=== PATIENT | female | born 1995 | race Caucasian/White ===

== ENCOUNTER 2018-02-27 17:21 | Emergency (ER) | payer SELFPAY ==
[~2018-02-27 17:21] MED LIST: LOR5/325 PO; NO ROUTINE MEDS
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
== END 2018-02-27 19:05 | disposition home or self-care (01) ==
LOC: ER 17:59
DX: F41.9 Anxiety disorder, unspecified (principal)
CPT/HCPCS: 80305; 81001; 99283

== ENCOUNTER → 2018-03-03 | Outpatient (CLI) | payer OTHER ==
[2018-03-03 12:20] LABS: PLATELET COUNT, AUTOMATED 251 K/uL (150-450)
--- NOTE | 2018-03-03 12:32 | EKG ---
FACILITY: [facility] [place] PATIENT NAME: MIRANDA JENNINGS : [id number] MR: [id number] V: [id number] EXAM DATE: ORDERING PHYSICIAN: ALBERT BLAS TECHNOLOGIST: GERMAINE Dahl Reason : CHEST PAIN Blood Pressure : / mmHG Vent. Rate : 048 BPM Atrial Rate : 048 BPM P-R Int : 148 ms QRS Dur : 074 ms QT Int : 442 ms P-R-T Axes : 042 050 037 degrees QTc Int : 394 ms Marked sinus bradycardia with sinus arrhythmia No ST-T abnormalities No previous ECGs available Confirmed by VALENTIN LAURA ([id number]) on 03/04/2018 12:58:03 PM Referred By: ROOPA Confirmed By:VALENTIN LAURA
--- NOTE | 2018-03-03 13:03 | RADIOLOGY IMAGING REPORT ---
[place] [facility] [place] NAME: Verenice Donaldson : 1995 MR: [id number] V: [id number] EXAM DATE: ORDERING PHYSICIAN: ALBERT BLAS TECHNOLOGIST: Location: [facility] [place] Patient: Verenice Donaldson : 1995 Visit/Account:[id number] Date of Sevice: 03/03/2018 Exam type: CHEST PA AND LAT History: Chest pain started yesterday Comparison: None. Findings: The lungs are free of acute effusions, infiltrates or edema. There is no evidence of pneumothorax or pneumomediastinum. Cardiac silhouette is normal in size. The trachea is midline. IMPRESSION: 1. No acute cardiac pulmonary process is seen Report Dictated By: Lulú Bradley MD at 03/03/2018 12:57 PM Report E-Signed By: Lulú Bradley MD at 03/03/2018 12:58 PM WSN:[email or web address]
== END ==
LOC: RAD 12:02
PROVIDERS: ATTEND Physician Assistant
DX: R00.1 Bradycardia, unspecified (principal); I49.8 Other specified cardiac arrhythmias
CPT/HCPCS: 36415; 71046; 82310; 82374; 82435; 82565; 82947; 83690; 84132; 84295; 84520; 85025; 93005

== ENCOUNTER 2018-03-07 13:00 | Emergency (ER) | payer OTHER ==
--- NOTE | 2018-03-07 14:09 | ER Report ---
History and Physical Time Seen By MD: 13:10 Hx. of Stated Complaint: PT REPORTS PAIN IN THE RIGHT SIDE OF HER HEAD THAT STARTED LAST NIGHT HPI/ROS This is a 23-year-old otherwise healthy female who is from [place] originally , but currently living in [place]. She presents to the emergency department complaining of a right sided posterior headache that started yesterday. The headache improved with some ibuprofen yesterday, however she states that her grandfather had a cerebral aneurysm and she is worried that she has same. Her headache is point tenderness, not the worse headache of her life, not maximal at onset. She has no fever chills, and no meningismus. She also adds that she is currently learning a new foreign language and feels as if her headache may be because "there are new pathways opening up in my brain." She has no other complaints. Remainder of the 14 system rev: Yes Allergies: Coded Allergies: No Known Drug Allergies (Unverified , 03/07/18) Home Meds Unable to Obtain Active Prescriptions or Reported Meds Reviewed Nurses Notes: Yes Old Medical Records Reviewed: Yes Hx Smoking: No Hx Substance Use Disorder: No Hx Alcohol Use: Yes (OCC) Constitutional Vital Sign - Last 24 Hours 03/07/18 13:05 Temp 98.2 Pulse 59 Resp 16 B/P (MAP) 113/78 Pulse Ox 95 O2 Delivery Room Air Physical Exam General Appearance: The patient is alert, has no immediate need for airway protection and no current signs of toxicity. Eyes: Pupils equal and round no injection. Respiratory: Chest is non tender, lungs are clear to auscultation. Cardiac: regular rate and rhythm Gastrointestinal: Abdomen is soft and non tender, no masses, bowel sounds normal. Neck: Neck is supple. No meningismus. There is TTP along the right upper trapezius muscle and point TTP where the trapezius inserts into the cranium Extremities have full range of motion and are non tender. Skin: No rashes or lesions. DIFFERENTIAL DIAGNOSIS: After history and physical exam differential diagnosis was considered for headache including but not limited to subarachnoid hemorrhage , migraine headache, tension headache and infectious causes such as meningitis, pharyngitis and sinusitis. Medical Decision Making ED Course/Re-evaluation ED Course This is an otherwise healthy 23-year-old female who presents to the emergency department with pain in the right posterior portion of her head that started yesterday. She has no fever or chills, no meningismus. He is not worst headache of her life, and not maximal at onset. She has point tenderness to palpation at the insertion of the trapezius into the cranium. I think this is consistent with occipital neuralgia. She does not want any medications. I counseled her to take ibuprofen or Tylenol for the pain and follow-up with a primary care physician. Decision to Disposition Date: March 07, 2018 Decision to Disposition Time: 14:05 Depart Departure Latest Vital Signs Vital Signs Date Time Temp Pulse Resp B/P (MAP) Pulse Ox O2 Delivery O2 Flow Rate FiO2 03/07/18 13:05 98.2 59 16 113/78 95 Room Air Impression: Primary Impression: Occipital neuralgia of right side Condition: Improved Disposition: HOME OR SELF-CARE New Scripts Unable to Obtain Active Prescriptions or Reported Meds Patient Instructions: Acute Headache (ED) ASMITA LEONG MD March 07, 2018 14:09
[2018-03-07 14:12] VITALS: BP 105/65
== END 2018-03-07 14:14 | disposition home or self-care (01) ==
LOC: ER 13:19
DX: M54.81 Occipital neuralgia (principal)
CPT/HCPCS: 99282

== ENCOUNTER 2018-11-12 21:41 | Inpatient (IN) | payer MEDICAID ==
[~2018-11-12] VITALS: Ht 152.4 cm; Wt 43.1 kg
[~2018-11-12 21:41] MED LIST changes: +BUPR-133 PO
[2018-11-12 22:23] VITALS: BP 101/76
[2018-11-12] MEDS ORDERED: ACETAMINOPHEN 325 MG TAB PO PRN (22:45)
[2018-11-12] MEDS ORDERED: MAG HYD/AL HYD/SIMETH 30ML UDC PO PRN (22:45)
[2018-11-12] MEDS ORDERED: hydrOXYzine PAMOATE 25 MG CAP PO PRN (22:45)
[2018-11-12] MEDS ORDERED: NICOTINE POLACRILEX 4 MG LOZG PO PRN (23:15)
[2018-11-12] MEDS ORDERED: NICOTINE POLACRILEX 2 MG GUM PO PRN (23:15)
[2018-11-12] MEDS ORDERED: NICOTINE INH SYSTEM 10 MG/INH INH PRN (23:15)
[2018-11-13] MEDS ORDERED: NICOTINE 21 MG/24 HR PATCH TD SCH
[2018-11-13] MEDS ORDERED: LORazepam 1 MG TAB PO PRN (00:25)
--- NOTE | 2018-11-13 00:36 | NUR ---
Offered patient Ativan per orders. Patient appears anxious and restless, continues to be paranoid. Denies feeling like there is bugs in her bed at this time. Encouraged patient to verbalize feelings and concerns. Addendum: 11/13/18 at 0041 by YINKA REYES RN Patient with frequent questions regarding medications. Stated that the "last medication you gave me made my stomach hurt." Requested a snack at that time, and was provided one.
[2018-11-13 06:17] VITALS: BP 98/64
[2018-11-13] MEDS: MULTIVITAMINS TAB PO SCH (08:33)
[2018-11-13] MEDS ORDERED: PATCH REMOVAL 1 EA TP SCH (09:00)
[2018-11-13] MEDS ORDERED: SERTRALINE HCL 50 MG TAB PO SCH (10:00)
[2018-11-13 11:30] VITALS: BP 110/64
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
[2018-11-13] MEDS ORDERED: BUPR-472 PO (16:12)
[2018-11-13] MEDS ORDERED: BUPR-474 PO (16:12)
[2018-11-13 17:30] VITALS: BP 102/68
[2018-11-13] MEDS ORDERED: QUEtiapine FUM 25 MG TAB PO ONE (21:00)
[2018-11-13 21:51] VITALS: BP 138/113
[2018-11-14 06:13] VITALS: BP 120/79
[2018-11-14] MEDS: SERTRALINE HCL 50 MG TAB PO SCH (08:34)
[2018-11-14] MEDS: MULTIVITAMINS TAB PO SCH (08:34)
[2018-11-14 13:25] VITALS: BP 108/60
--- NOTE | 2018-11-14 13:41 | BHS Progress Note ---
[facility] - Subjective Progress Notes Subjective Feeling much better today. Encouraged by a visit with relatives yesterday. Slept well. Feels thinking is "more focused" and "rejuvenated." No longer feels there are bugs in her room. Denies A/V hallucinations and feels safe here but volunteered that she would probably not feel safe at home since Verenice still feels that someone is doing things to her house and coming into her house to harass her. Talked about plans. Verenice is worried about the fact that her daughter's father wants to move to [place]. She spoke with her mother who is in [place] yesterday and they discussed the possiblity of Verenice's returning there as well. She would now like her mother to be involved in her care. I suggested a conference call tomorrow to talk with Verenice's mother about what we need to do to help Verenice. Suicidal Ideation: None Homicidal Ideation: None [facility] - Objective Physical Exam Vital Signs Temp 97, BP 120/79, pulse 97,PO2 96 Gait and Station: Steady [facility] Medications Reviewed: Side Effects (Denies any side effects so far), Benefits of Medication Mental Status Exam General Appearance: Well Groomed, Good Eye Contact, Cooperative, Polite, Good Interaction Speech: Clear, Spontaneous, Normal Rate, Normal Rhythm, Normal Volume, Normal Tone Mood: Euthymic (Does not feel depressed this morning) Affect: Other (improved but still a little reticent) Thought Process: Organized, Logical, Goal Directed Thought Content: No Suicidal Ideation; Delusions (See earlier narrative); No Auditory Halllucinations, No Visual Hallucinations Sensorium: Clear Cognition: Alert & Oriented-Person, Alert & Oriented-Place, Alert & Oriented-Time, Tidko-Wpdduqbb-Gxlssjjax Memory: Immediate, Recent, Remote, Other Intelligence: Average [facility] Assessment and Plan Qhks-gr-Opld Encounter Date: Nov 14, 2018 Ejwj-kf-Jshr Encounter Time: 10:20 [facility] Plan: Individual/Group Therapy, Admin/Titrate Meds, Educate Patient Problems: (1) Depression Status: Acute Condition Verenice is improving and willing to continue the use of Zoloft and Seroquel. We increased the dose of both to 50 mgs today. Hope to arrange family conference call tomorrow. Problem Qualifiers (1) Depression: Depression Type: major depressive disorder Major depression recurrence: single episode Psychotic features: with psychotic features GIANNA CABRERA DO Nov 14, 2018 13:41
[2018-11-14] MEDS ORDERED: diphenhydrAMINE 25 MG CAP PO PRN (17:10)
--- NOTE | 2018-11-14 17:27 | NUR ---
At approximately 1640 pt came to desk with c/o her "jaw quivering", and stated that it started 30 minutes [address] Tan was contacted by this nurse. Dr. Tan did not feel that it was necessary for intervention, and to assure pt that the MD did not feel it was medication related. When discussing conversation with pt, pt states that she is having "muscle spasms" in her jaw. It was discussed that Benadryl may be ordered for symptoms, and the patient states, "I don't need Benadryl, I need something for muscle spasms". Upon attempting to explain the necessity for Benadryl vs. a medication for muscle spasm the patient refuses education. This nurse contacted Dr. Tan at 1702, and orders were given for Benadryl PO Q8H PRN muscle spasms in jaw. Benadryl was presented to the patient, and she refused the medication.
[2018-11-14] MEDS ORDERED: QUEtiapine FUM 25 MG TAB PO SCH (21:00)
[2018-11-14 21:24] VITALS: BP 116/84
[2018-11-15 05:42] VITALS: BP 124/84
[2018-11-15] MEDS: MULTIVITAMINS TAB PO SCH (08:33)
[2018-11-15] MEDS: SERTRALINE HCL 50 MG TAB PO SCH (08:33)
[2018-11-15 10:25] VITALS: BP 104/72
--- NOTE | 2018-11-15 12:35 | BHS Progress Note ---
[facility] - Subjective Progress Notes Subjective Zoloft 50 mgs in the morning daily and Seroquel 50 mgs at night daily Yesterday afternoon, Verenice began complaining of jaw spasms. I ordered Benadry, but she did not take it and the problem resolved. She had visitors yesterday and smiled talking about seeing them her aunt and uncle and their family. She also got a call from her mom. She offered that she had been thinking that people were "against me"--including her mother. Now, however, she sees that this was not the case. She feels more supported and realizes that the problem may have been her perception of others. "I am coming to my senses." She denies and feeling about suicide. She would like to move to [place] to be closer to her mother. We discussed how this might work with her daughter and his father. She feels that they can work it out and all move to [place]. We talked about after-care. I stressed to Verenice that she needs to continue both her antidepressant and the antipsychotic medications and that these medications will need to be monitored by a psychiatrist or other mental health prescriber. I added that I recommend that she continue both medications for at least six months following discharge and work with her provider to establish her on-going needs. Suicidal Ideation: None Homicidal Ideation: None [facility] - Objective Physical Exam Vital Signs 97.3, 98, 124/84, 96 Gait and Station: Steady [facility] Medications Reviewed: Side Effects (Denies any side effects so far), Benefits of Medication, Risks Mental Status Exam General Appearance: Casual, Well Groomed, Good Eye Contact, Cooperative, Polite, Good Interaction Speech: Clear, Spontaneous, Normal Rate, Normal Rhythm, Normal Volume, Normal Tone Mood: Euthymic (Does not feel depressed this morning) Affect: Calm, Neutral, Other (improved but still a little reticent) Thought Process: Organized, Logical, Goal Directed Thought Content: No Suicidal Ideation; Delusions (Did not make any delusional statements today); No Auditory Halllucinations, No Visual Hallucinations Sensorium: Clear Cognition: Alert & Oriented-Person, Alert & Oriented-Place, Alert & Oriented- Time, Gllaa-Hcnocifg-Zfialmpkl Memory: Immediate, Recent, Remote, Other Intelligence: Average Insight Judgment: Good (see subjective) Lab TSH is low at 0.26 [facility] Assessment and Plan Zcon-ra-Rsvf Encounter Date: Nov 15, 2018 Nsyb-ac-Bxdy Encounter Time: 09:00 [facility] Plan: Individual/Group Therapy, Admin/Titrate Meds, Educate Patient Problems: (1) Depression Status: Acute Assessment & Plan: Continue Zoloft and Seroquel (2) Low TSH level Assessment & Plan: Check free T4 Condition Verenice is improving steadily. We will focus on release planning. We have a conference call scheduled with her mother later today. Problem Qualifiers (1) Depression: Depression Type: major depressive disorder Major depression recurrence: single episode Psychotic features: with psychotic features GIANNA CABRERA DO Nov 15, 2018 12:35
--- NOTE | 2018-11-15 15:21 | BHS Progress Note ---
[facility] - Subjective Progress Notes Subjective This is the synopsis of a 30 minute conference call with Verenice's mother at 1:30 this afternoon. This afternoon, the treatment team, Verenice, and I had a conference call with Verenice's mother, Jaida Orellana who lives in [place]. We talked about the problems Verenice has been having with her mood as well as the paranoia she has had. Jaida said that she has been worried about Verenice for a long time. About a year ago, Verenice called her needing money. She sent some, but then the next day, Verenice called her back and accused Jaida of identity theft. She said that Verenice has sometimes "attacked" her on the phone. We addressed Verenice's worries about her apartment and feelings that people want to harm her. Jaida has also seen this paranoia. I said that Amarilyss problems seem more severe than just depression and said that we need to be sure that she is stable on an antipsychotic medication before she leaves the hospital. We talked about a release plan for some time. At the end of the discussion, we agreed that it would probably be best for Verenice if she makes immediate plans to go to her mother's house in [place] after discharge. 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 We all agreed that Verenice still has fears about her apartment and fears about being alone. She thinks it would be best for her daughter is she stays with her dad until she is more stable. Verenice believes that he will work with her on a plan and that her daughter is happy with her dad. Verenice is still complaining of some jaw spasms. She has been reading about his potential side effect on the medication handout she was given. I explained that this is a class effect of antipsychotics and for that reason it is listed on the handout but extremely unlikely to happen to 50 mgs of Seroquel. She does not want to take Benadryl. I suggested we try stopping the Zoloft tonight and increasing Seroquel to 100 mgs while monitoring for EPS. A different antidepressant could be added at Dr. Randall's discretion. Following this conversation, it seems clear the Verenice's paranoia and disturbed thinking have been present for over a year and probably preceded the depressive symptoms. I feel it is essential for her to continue an antipsychotic medication and said this to both Verenice and her mother. [facility] - Objective Physical Exam Gait and Station: Steady [facility] Medications Reviewed: Side Effects (Denies any side effects so far), Benefits of Medication, Risks Mental Status Exam General Appearance: Casual, Well Groomed, Good Eye Contact, Cooperative, Polite, Good Interaction Speech: Clear, Spontaneous, Normal Rate, Normal Rhythm, Normal Volume, Normal T one Mood: Euthymic (Does not feel depressed this morning) Affect: Calm, Neutral, Other (improved but still a little reticent) Thought Process: Organized, Logical, Goal Directed Thought Content: No Suicidal Ideation; Delusions (Did not make any delusional statements today); No Auditory Halllucinations, No Visual Hallucinations Sensorium: Clear Cognition: Alert & Oriented-Person, Alert & Oriented-Place, Alert & Oriented- Time, Xgjhf-Qoabsjav-Ytulebpuy Memory: Immediate, Recent, Remote, Other Intelligence: Average Insight Judgment: Good (see subjective) [facility] Assessment and Plan Odqe-fy-Dlbg Encounter Date: Nov 15, 2018 Aade-oc-Ndkf Encounter Time: 13:30 [facility] Plan: Individual/Group Therapy, Admin/Titrate Meds, Educate Patient Problems: (1) Schizoaffective disorder, depressive type Status: Chronic Assessment & Plan: Based on the additional history we got today in our conference call as well as the difficulties we've seen Verenice struggling with in terms of cognition, planning, feeling persecuted, 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 She also has depressed mood, but believe we need to revise her diagnosis to reflect the prominent psychotic symptoms as primary. (2) Depression Status: Resolved (3) Low TSH level Condition I do not believe Verenice is well enough to be released on Friday. She is still afraid to return to her apartment and is having problems with her medication. I am increasing the Seroquel to 100 mgs and stopping Zoloft today. I want her to be on a therapeutic dose of an antipsychotic medication without uncomfortable side effects before she goes home. I am hoping that Verenice can go to her mother's home in [place] after she is released and continue to care there where she will have more support. Problem Qualifiers (1) Depression: Depression Type: major depressive disorder Major depression recurrence: single episode Psychotic features: with psychotic features GIANNA CABRERA DO Nov 15, 2018 15:21
[2018-11-15] MEDS ORDERED: QUEtiapine FUM 100 MG TAB PO SCH (21:00)
[2018-11-15 21:28] VITALS: BP 130/85
[2018-11-16 06:09] VITALS: BP 116/72
[2018-11-16] MEDS: MULTIVITAMINS TAB PO SCH (09:00)
[2018-11-16] MEDS: SERTRALINE HCL 50 MG TAB PO SCH (09:33)
[2018-11-16 13:59] VITALS: BP 103/81
[2018-11-16] MEDS ORDERED: QUEtiapine FUM 100 MG TAB PO SCH (21:00)
--- NOTE | 2018-11-16 21:18 | BHS Progress Note ---
[facility] - Subjective Progress Notes Subjective Pt seen in treatment team meeting with her outpatient therapist Dr. Altman present and her uncle present on speaker phone. Pt is about the same-- still guarded, with flat affect, but did take risperdal 1 mg last night and is agreeable to continuing medication. She is ok with going back on zoloft as well. She seems less paranoid about medication in general today, but she continues to be fairly disorganized in her thinking, has been mostly withdrawn and isolative. She has not been agitated. Slept well last night. C/O feeling a bit sedated this am. Denies feeling dizzy. Her T4 came back WNL (1.26), and given only minor low on her TSH, best to just recheck in it 6 weeks. Plans are being put in place for a discharge to her mother's in [place], but need to get her on to reasonable dose of risperdal and zoloft first. Will continue risperdal 1 mg tonight for dose number 2, génesis given c/o sedation this am, then tomorrow likely increase to 1.5 mg. Will restart zoloft at 25 mg today-- she clearly has depressive sx's as well as psychosis. Suicidal Ideation: None Homicidal Ideation: None [facility] - Objective Physical Exam Vital Signs Vital Signs 11/15/18 11/16/18 10:25 13:59 Temp 98.6 Pulse 78 Resp 16 B/P (MAP) 103/81 (88) Pulse Ox 96 O2 Delivery Room Air Gait and Station: Steady [facility] Medications Reviewed: Side Effects (c/o sedation this am), Benefits of Medication, Risks Allergies Reviewed: Yes Mental Status Exam General Appearance: Casual, Well Groomed, Good Eye Contact, Cooperative, Polite, Good Interaction, Psychomotor Retardation Speech: Clear, Normal Rate, Normal Rhythm, Normal Tone, Other (low volume. delayed response) Mood: Other ("I'm OK") Affect: Calm, Neutral, Flat, Other (pretty flat, even when interacting with outpatient therapist present at her meeting) Thought Process: Organized, Logical, Goal Directed, Other (overall oraginzed with closed-ended questions, but she gets tangential with more open-ended material) Thought Content: No Suicidal Ideation, No Homicidal Ideation; Delusions (talking about "someone messing with my car and the wiring in my apartment"); No Auditory Halllucinations, No Visual Hallucinations, No Thought Broadcasting, No Ideas of Reference, No Obsessions, No Compulsions, No Other Sensorium: Clear Cognition: Alert & Oriented-Person, Alert & Oriented-Place, Alert & Oriented- Time, Fdprg-Olnfvnfd-Doelfhnrj Memory: Immediate, Recent, Remote Intelligence: Average Insight Judgment: Fair Lab Hematology Test 11/15/18 15:09 Free Thyroxine 1.26 ng/dl (0.78-2.19) Chemistry Test 11/15/18 15:09 Free Thyroxine 1.26 ng/dl (0.78-2.19) [facility] Assessment and Plan Iduh-ik-Krtq Encounter Date: Nov 16, 2018 Pzxa-ir-Izft Encounter Time: 08:30 [facility] Plan: Necessary Precautions, Individual/Group Therapy, Admin/Titrate Meds, Educate Patient Tobacco Medications: Started Multpiple Antipsychotics Used: No Problems: (1) Schizoaffective disorder, depressive type Status: Chronic ANDRZEJ DONOHUE MD Nov 16, 2018 21:18
[2018-11-16 21:34] VITALS: BP 130/75
[2018-11-17 06:10] VITALS: BP 96/67
[2018-11-17] MEDS: SERTRALINE HCL 50 MG TAB PO SCH (08:22)
[2018-11-17] MEDS: MULTIVITAMINS TAB PO SCH (08:22)
[2018-11-17 12:55] VITALS: BP 119/79
--- NOTE | 2018-11-17 18:52 | BHS Progress Note ---
[facility] - Subjective Progress Notes Subjective Pt seen in conference room with team. Pt says she is improving-- "My attention span, I can carry on a conversation better." And although thought process is improving, she still is very guarded. We gave her an educational handout regarding psychosis, and she came back into the room, handed it back saying "I don't need this," and was clearly very suspicious. She tends to stay isolated to her room, is guarded in interactions with others. Tolerating seroquel well, denies oversedation, denies dizzyness. Denies any further jaw stiffness. Says she is still depressed, is glad that she went back on the zoloft, and would like to increase zoloft back to 50 mg which we will do. Will also increase seroquel to 200 mg tonight for a more robust antipsychotic dose. Her family are in support of a move to her mother's in [place], and we will focus out discharge planning on this when she is stable for discharge-- at this point pt is still showing active psychotic symptoms. Suicidal Ideation: None Homicidal Ideation: None [facility] - Objective Physical Exam Vital Signs Vital Signs 11/17/18 11/17/18 06:10 12:55 Temp 98.2 Pulse 87 Resp 15 B/P (MAP) 119/79 (92) Pulse Ox 98 O2 Delivery Room Air Muscle Strength and Tone: WNL Gait and Station: Steady [facility] Medications Reviewed: Side Effects (c/o sedation this am), Benefits of Medication, Risks Allergies Reviewed: Yes Mental Status Exam General Appearance: Casual, Well Groomed, Good Eye Contact, Cooperative, Polite, Good Interaction, Psychomotor Retardation Speech: Clear, Normal Rate, Normal Rhythm, Normal Tone, Other (low volume. delayed response) Mood: Other ("I'm OK") Affect: Neutral, Flat, Other (paranoid) Thought Process: Organized, Logical, Goal Directed, Other (overall oraginzed with closed-ended questions, but she gets tangential with more open-ended material) Thought Content: No Suicidal Ideation, No Homicidal Ideation; Delusions (talking about "someone messing with my car and the wiring in my apartment"); No Auditory Halllucinations, No Visual Hallucinations, No Thought Broadcasting, No Ideas of Reference, No Obsessions, No Compulsions, No Other Sensorium: Clear Cognition: Alert & Oriented-Person, Alert & Oriented-Place, Alert & Oriented- Time, Xsflt-Zndflofg-Qeuppmgip Memory: Immediate, Recent, Remote Intelligence: Average Insight Judgment: Fair [facility] Assessment and Plan Bdnw-lm-Wkou Encounter Date: Nov 17, 2018 Azbs-fh-Sbhm Encounter Time: 09:00 [facility] Plan: Necessary Precautions, Individual/Group Therapy, Admin/Titrate Meds, Educate Patient Tobacco Medications: Started Multpiple Antipsychotics Used: No Problems: (1) Schizoaffective disorder, depressive type Status: Chronic ANDRZEJ DONOHUE MD Nov 17, 2018 18:52
[2018-11-17] MEDS ORDERED: QUEtiapine FUM 100 MG TAB PO SCH (21:00)
[2018-11-17 21:30] VITALS: BP 119/77
[2018-11-18 05:54] VITALS: BP 100/57
[2018-11-18] MEDS: SERTRALINE HCL 50 MG TAB PO SCH (08:16)
[2018-11-18] MEDS ORDERED: QUET200T29 PO (11:21)
[2018-11-18] MEDS ORDERED: SERT25TA87 PO (11:22)
--- NOTE | 2018-11-18 11:40 | BHS Discharge Summary ---
[facility] Discharge Summary Evoq-vv-Hzud Encounter Date: Nov 18, 2018 Xkaa-tc-Vcab Encounter Time: 08:40 Reason-Hosp/Final Diag (DSM-V): (1) Unspecified psychosis Status: Acute Hospital Course & Plan: Pt was admitted voluntarily to [facility]. She was initially paranoid, asked for new sheets because she thought there were bugs in her bed, was talking about hearing noises at home that made her think she was being stalked, thought someone was "messing with the tires on my car." She was started on zoloft for depression and seroquel for psychosis. The seroquel was titrated to 200 mg q hs and she responded well-- each day with more organized thinking, less delusional material, bit-by-bit less guarded, her affect softened and she displayed full range. We held treatment team meetings with her uncle, aunt, and mother, and family was very supportive. History obtained from them indicated that pt has had psychotic symptoms as far back as 2017-- she was accusing mother of identity theft and talking about being stalked. Pt does have depressive sx's as well-- for now diagnosis is unspecified psychosis with depression-- but over time dx may be more consistent with schizoaffective disorder. Pt was never expressing any SI throughout her hospital stay. By discharge she was stable and much improved; she will follow up for therapy with Dr. Mike Altman, and will see [facility] [employer] [facility] for medications. (2) Depression Status: Acute (3) Low TSH level Status: Acute Hospital Course & Plan: TSH was mildly low to 0.26, T4 was normal at 1.26. We instructed her to follow up in 6 weeks to re check thyroid labs. Physical Exam Latest Vital Signs Vital Signs 11/18/18 05:54 Temp 97.7 Pulse 55 Resp 15 B/P (MAP) 100/57 (71) Pulse Ox 96 O2 Delivery Room Air Mental Status Exam General Appearance: Casual, Well Groomed, Good Eye Contact, Cooperative, Polite, Good Interaction, Psychomotor Retardation Speech: Clear, Spontaneous, Normal Rate, Normal Rhythm, Normal Volume, Normal Tone Mood: Euthymic Affect: Full and Appropriate, Calm, Neutral Thought Process: Organized, Logical, Goal Directed Thought Content: No Suicidal Ideation, No Homicidal Ideation, No Delusions, No Auditory Halllucinations, No Visual Hallucinations, No Thought Broadcasting, No Ideas of Reference, No Obsessions, No Compulsions, No Other Sensorium: Clear Cognition: Alert & Oriented-Person, Alert & Oriented-Place, Alert & Oriented- Time, Anojk-Rgfwklsa-Uiceocomg Memory: Immediate, Recent, Remote Intelligence: Average Insight Judgment: Fair (showing much improved insight: "Now I know nobody was stalking me") Departure Condition: Improved Discharge to: Home Discharge Instructions Home Meds Discontinued Reported Medications Bupropion Hcl (WELLBUTRIN XL) 300 Mg Tab.er.24h, 300 MG PO QDAY for 30 Days, TAB 11/13/18 Bupropion Hcl (WELLBUTRIN XL) 150 Mg Tab.er.24h, 150 MG PO QDAY for 7 Days, TAB 11/13/18 Bupropion Hcl (WELLBUTRIN SR) 100 Mg Tablet.er, 100 MG PO QDAY, TAB 11/12/18 Multpiple Antipsychotics Used: No Diet: Regular Activity: As Tolerated Special Instructions: Discharge home. Follow-up with outpatient therapy and medication management. Crisis line provided. Return to Emergency Room for return of symptoms. Problem Qualifiers (1) Depression: Depression Type: major depressive disorder Major depression recurrence: single episode Psychotic features: with psychotic features ANDRZEJ DONOHUE MD Nov 18, 2018 11:40
== END 2018-11-18 11:37 | disposition home or self-care (01) | DRG 885 ==
LOC: BHS 21:41
PROVIDERS: ADMIT Psychiatry & Neurology Psychiatry; ATTEND Psychiatry & Neurology Psychiatry
DX: F32.3 Major depressive disorder, single episode, severe with psychotic features (principal); R94.6 Abnormal results of thyroid function studies; Z62.811 Personal history of psychological abuse in childhood; Z62.812 Personal history of neglect in childhood; Z56.0 Unemployment, unspecified; Z65.3 Problems related to other legal circumstances
CPT/HCPCS: 36415; 84439; Q0177